=== PATIENT | male | born 1970 | race Caucasian/White ===

== ENCOUNTER → 2024-10-31 07:59 | Outpatient (REF) | payer BC, SELFPAY | LOC: HWRAD 07:59 | PROVIDERS: ATTENDING PHYSICIAN Family Medicine | DX: R93.1 Abnormal findings on diagnostic imaging of heart and coronary circulation (principal) | CPT/HCPCS: 71250 ==

== ENCOUNTER 2025-04-18 20:34 | Emergency (ER) | payer BC, SELFPAY ==
[2025-04-18 20:41] VITALS: BP 164/100
[2025-04-18 21:10] LABS: Hematocrit 43.1 % (39.0-52.0); Hemoglobin 14.8 g/dL (13.0-18.0); Mean Corp Hgb Conc. 34.3 g/dL (33.0-37.0); Mean Corpuscular Volume 87.2 fL (80.0-94.0); Nucleated Red Blood Cells % 0 % (-); Platelet Count 269 10^3/uL (130-400); Red Cell Dist. Width 12.0 % (11.5-14.5)
[2025-04-18 21:23] LABS: ALT (SGPT) 13 U/L (0-50); AST (SGOT) 26 U/L (17-59); Albumin 5.0 g/dl (3.5-5.0); Alkaline Phosphatase 39 U/L (38-126); Blood Urea Nitrogen 18 mg/dl (9-20); Calcium 9.6 mg/dl (8.4-10.2); Carbon Dioxide 30 mmol/L (22-30); Chloride 101 mmol/L (98-107); Glucose 96 mg/dl (70-99); Potassium 4.9 mmol/L (3.5-5.1); Sodium 137 mmol/L (135-145); Total Protein 7.9 g/dl (6.3-8.2); eGFR > 60.00
[2025-04-18 21:32] LABS: Troponin I 0.013 ng/ml
[2025-04-18 23:37] VITALS: BMI 26.5
[2025-04-18 23:50] VITALS: BP 126/93
[2025-04-19] VITALS: BP 145/99
--- NOTE | 2025-04-19 00:13 | ED.CVA ---
History of Present Illness
General
Chief Complaint: CVA/TIA Symptoms
Source: patient and spouse
Exam Limitations: none
Time Seen by Provider: 04/18/25 23:47
Nursing documentation reviewed up to this point in time: agreed with
Onset of Stroke Symptoms
Onset of symptoms known: Yes
Date of onset of symptoms: 04/18/25
Time of onset of symptoms: 16:00
History of Present Illness
History of Present Illness:
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
changes, symptoms improved, in the ER
Phy Exam
Physical Exam
Physical Exam:
Physical Exam
General: no apparent distress, not acutely ill
Neck: No jaw
Heart: s1/s2 regular rate and rhythm, no murmur. equal radial pulses.
Lungs: no acute respiratory distress. clear bilaterally
Abdomen: Nontender
Neuro: alert and oriented. no focal neurological deficits clear speech normal [id number] no facial palsy
Skin: no rash
Psychiatric: well kept. interactive and cooperative
Extremities: no edema.
Course
Orders/Labs/Results
Orders:
Orders
04/18/25 20:50
Electrocardiogram (*1) Urgent
Reason for Study: Chest Pain
EKG- Treatment ONCE
04/18/25 21:01
Complete Blood Count/With Diff Urgent
Comprehensive Metabolic Panel Urgent
Troponin I Urgent
04/18/25 22:58
CT Head W/o Iv Contrast Urgent
Comment:
Reason For Exam: tia
04/19/25 00:06
Aspirin 325 mg PO NOW STA
Abnormal Lab Results
04/18/25
21:01
Lymphocytes % 16.1 L %
(20.5-51.1)
04/18/25 21:01
04/18/25 21:01
Vital Signs
Initial and Last Documented VS:
Initial Vital Signs
Temp Pulse Resp BP Pulse Ox
98.5 F 78 16 164/100 100
04/18/25 20:41 04/18/25 20:41 04/18/25 20:41 04/18/25 20:41 04/18/25 20:41
Last Documented Vital Signs
Temp Pulse Resp BP Pulse Ox
98.5 F 61 13 126/93 100
04/18/25 20:41 04/18/25 23:51 04/18/25 23:51 04/18/25 23:50 04/19/25 00:14
*Radiology
Radiology exam reviewed: radiology read reviewed
*Pulse Oximetry
SaO2: 100
Oxygen Mode of Delivery: Room air
Patient hypoxic: no
*EKG
Interpreted by ED Provider?: Yes
Interpretation: normal
Comparison EKG: no comparison EKG present
Heart Rate: 78
Rate: normal
Rhythm: sinus
Ischemia: no ischemia
*[employer] Interpretation
Rate: normal
Interpretation: normal
Heart Rate: 78
Rhythm: sinus
*Critical Care Note
Total Time (30-74mins, 75-104mins- exclusive of procedures): Not Applicable
Update Note
Update Note:
12:30 AM update patient with nonfocal neurologic examination of score 0, episode of word finding difficulties reviewed with his PCP will call the patient in the morning, discussed with patient and spouse clearly instructed to return to the ER for
worsening symptoms will start him on aspirin
ED Attending Note
-
Portions of this chart may have been created with voice recognition software.� Occasional wrong word or��sound alike� substitutions may have occurred due to the inherent limitations of voice recognition software.
Discharge Plan
Departure
Patient Disposition: Home (Routine Discharge)
Date of Disposition: 04/19/25
Time of Disposition: 00:46
Patient with high blood pressure during this ER visit?: No
Condition: Good
Discharge Problem:
Word finding difficulty
Instructions: Transient Ischemic Attack (DC)
Prescriptions:
New
aspirin 81 mg tablet,chewable
81 mg PO DAILY Qty: 90 0RF
No Action
ascorbic acid (vitamin C) [Vitamin C] 500 MG tablet
1,000 mg PO BID Qty: 56 0RF
Rx Instructions:
Take 1,000 mg twice a day for 14 days
cholecalciferol (vitamin D3) 1,000 UNITS tablet
2,000 units PO DAILY Qty: 28 0RF
Rx Instructions:
Take 2,000 units daily for 14 days
Referrals:
Jem Torres DO [Family Provider, Family Practice] - Tomorrow
Activity Restrictions/Additional Instructions:
Start aspirin 81 mg a day
Discussed restarting his statin with Dr. Torres tomorrow
Return to the ER if worsening or recurrent symptoms or any other concerns
Interventions
Interventions:
*Risk Screen - Suicide Last Done: 04/18/25 20:41
*General Assessment Last Done: 04/18/25 23:40
*Neglect/Abuse Screening Last Done: 04/18/25 20:41
*ED- Fall Risk Assessment Last Done: 04/18/25 23:40
*ED COVID-19 Vaccine History Last Done: 04/18/25 23:40
*ED Influenza Vaccine History Last Done: 04/18/25 23:40
ED- Pulmonary Assessment Last Done: 04/18/25 23:40
ED- Neurological Assessment Last Done: 04/18/25 23:40
ED- Cardiac Assessment Last Done: 04/18/25 23:40
ED Swallowing Screen Last Done: 04/19/25 00:05
Discharge Date and Time
Print Language: LATVIAN
[2025-04-19] MEDS: ASPIRIN 325 MG PO (00:16)
[2025-04-19 01:03] VITALS: BP 140/100
== END 2025-04-19 01:13 | disposition home or self-care (01) ==
LOC: EMR 20:34
PROVIDERS: Student in an Organized Health Care Education/Training Program; EMERGENCY PHYSICIAN Emergency Medicine; FAMILY PHYSICIAN Family Medicine
DX: G45.9 Transient cerebral ischemic attack, unspecified (principal); R47.89 Other speech disturbances
CPT/HCPCS: 99284; 70450; 80053; 84484; 85025; 93005

== ENCOUNTER → 2025-04-21 08:00 | Outpatient (REF) | payer BC, SELFPAY | LOC: MRI 08:00 | PROVIDERS: ATTENDING PHYSICIAN Family Medicine | DX: R41.0 Disorientation, unspecified (principal) | CPT/HCPCS: 70553; A9575 ==

== ENCOUNTER → 2025-05-28 17:05 | Outpatient (REF) | payer BC, SELFPAY | LOC: PAVMRI 17:05 | PROVIDERS: ATTENDING PHYSICIAN Psychiatry & Neurology Neurology; FAMILY PHYSICIAN Family Medicine | DX: G45.9 Transient cerebral ischemic attack, unspecified (principal) | CPT/HCPCS: 70547; 70551 ==